=== PATIENT | male | born 1990 | race Two or more races ===

== ENCOUNTER 2017-08-27 15:32 | Emergency (ER) | payer OTHER ==
[~2017-08-27] VITALS: Ht 182.9 cm; Wt 108.9 kg
--- NOTE | 2017-08-27 16:45 | NUR ---
DC PT IN STABLE CONDITION, TO [employer].
[2017-08-27 16:46] VITALS: BP 119/71
== END 2017-08-27 16:46 ==
LOC: ER 15:34
DX: S20.219A Contusion of unspecified front wall of thorax, initial encounter (principal); V43.52XA Car driver injured in collision with other type car in traffic accident, initial encounter; Y93.89 Activity, other specified; Y92.410 Unspecified street and highway as the place of occurrence of the external cause; Y99.8 Other external cause status
CPT/HCPCS: 71045; 93005; 99284; A4663